=== PATIENT | male | born 1975 | race Two or more races ===

== ENCOUNTER 2017-02-05 17:54 | Emergency (ER) | payer SELFPAY ==
[~2017-02-05] VITALS: Ht 182.9 cm; Wt 99.8 kg
[2017-02-05 18:03] VITALS: BP 125/76
[2017-02-05] MEDS ORDERED: IBUPROFEN 400 MG TABLET PO ONE (19:30)
[2017-02-05] MEDS ORDERED: diphenhydrAMINE HCL 50 MG/ML VIAL IM ONE (19:30)
[2017-02-05] MEDS ORDERED: IBUPROFEN 400 MG TABLET ONE (19:31)
[2017-02-05] MEDS ORDERED: diphenhydrAMINE HCL 50 MG/ML VIAL ONE (19:31)
== END 2017-02-05 19:41 | disposition home or self-care (01) ==
LOC: ER 17:58
DX: S40.862A Insect bite (nonvenomous) of left upper arm, initial encounter (principal); W57.XXXA Bitten or stung by nonvenomous insect and other nonvenomous arthropods, initial encounter; Y93.89 Activity, other specified; Y92.89 Other specified places as the place of occurrence of the external cause; Y99.9 Unspecified external cause status
CPT/HCPCS: 96372; 99283; A4606; J1200; Z7610